=== PATIENT | female | born 1945 | race Caucasian/White ===

== ENCOUNTER → 2023-10-29 15:03 | Outpatient (REF) | payer OTHER, SELFPAY | LOC: DHCBS HW 15:03 | PROVIDERS: ATTENDING PHYSICIAN Internal Medicine Cardiovascular Disease; FAMILY PHYSICIAN Family Medicine | DX: Q24.9 Congenital malformation of heart, unspecified (principal); I50.812 Chronic right heart failure | CPT/HCPCS: 93306 ==

== ENCOUNTER → 2025-03-01 13:49 | Outpatient (REF) | payer OTHER, SELFPAY | LOC: HWRCS 13:49 | PROVIDERS: ATTENDING PHYSICIAN Internal Medicine Cardiovascular Disease; FAMILY PHYSICIAN Family Medicine | DX: I27.21 Secondary pulmonary arterial hypertension (principal); R42 Dizziness and giddiness | CPT/HCPCS: 93306 ==

== ENCOUNTER 2025-07-20 22:09 | Inpatient (IN) | payer OTHER, SELFPAY ==
[2025-07-20] VITALS (10 sets, daily range): BP systolic 103–133; BP diastolic 53–78; BMI 25.3
[2025-07-20 17:42] LABS: INR 1.37; PT 16.6 Sec (11.4-14.6)
[2025-07-20 17:43] LABS: APTT 25.5 Sec (23.4-35.0)
[2025-07-20 17:52] LABS: ALT (SGPT) 16 U/L (0-35); AST (SGOT) 28 U/L (14-36); Albumin 3.8 g/dl (3.5-5.0); Alkaline Phosphatase 77 U/L (38-126); Blood Urea Nitrogen 35 mg/dl (7-17); Calcium 8.4 mg/dl (8.4-10.2); Carbon Dioxide 24 mmol/L (22-30); Chloride 99 mmol/L (98-107); Glucose 106 mg/dl (70-99); Potassium 4.0 mmol/L (3.5-5.1); Sodium 133 mmol/L (135-145); Total Protein 6.1 g/dl (6.3-8.2); eGFR 57.31
[2025-07-20 19:29] LABS: Hematocrit 21.2 % (37.0-47.0); Hemoglobin 6.5 g/dL (12.0-16.0); Mean Corp Hgb Conc. 30.7 g/dL (33.0-37.0); Mean Corpuscular Volume 93.0 fL (81.0-99.0); Nucleated Red Blood Cells % 1.0 %; Platelet Count 222 10^3/uL (130-400); Red Cell Dist. Width 15.9 % (11.5-14.5)
--- NOTE | 2025-07-20 19:38 | ED.GENMED ---
History of Present Illness
<Paradise Reynoso MAPPING SUPERVISOR - Last Filed: 07/21/25 00:46>
General
Chief Complaint: Rectal Bleeding
Source: patient
Exam Limitations: none
Time Seen by Provider: 07/20/25 19:27
Nursing documentation reviewed up to this point in time: agreed with
History of Present Illness
History of Present Illness:
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
Presents for dark stools past 3 weeks, went to PCP today and tested heme positive stools. Has been fatigued, 'a little' nausea, chronically short of breath on exertion, states no worse, denies CP, abdominal pain. Eliquis was stopped 4 days ago by
PCP for dark/black stools.
Past History
<Paradise Reynoso, MAPPING SUPERVISOR - Last Filed: 07/21/25 00:46>
Past History
ED Past Medical History: Arrthythmia (Atrial fibrillation), Cancer (Head and neck), CHF and Other (sciatica-s/p epidural,Pulmonary hypertension, Diverticulitis, Vertigo, pericardial effusion, kidney injury, moderate to severe aortic regurgitation,
history of an atrial septal defect, Eisenmenger syndrome)
ED Past Surgical History: Other (Tongue and lumphnodes removed from neck. )
Social History
Tobacco: Non-smoker
Alcohol: None
Personal:
Living: alone
Family History
Family History: Unable to obtain
Review of Systems
<Paradise Reynoso, MAPPING SUPERVISOR - Last Filed: 07/21/25 00:46>
Review of Systems
Allergies reviewed?: Yes
All Other Systems: ROS reviewed and negative except as documented in HPI and ROS
Constitutional: Reports fatigue; Denies fever
Respiratory: Denies trouble breathing
Cardiac: Denies chest pain
ABD/GI: Reports nausea and black stools; Denies abdominal pain, vomiting or diarrhea
: Denies dysuria
Musculoskeletal: Reports edema (chronic, waxes and wanes, legs more swollen than usual)
Skin: Reports no symptoms
Neurological: Reports no symptoms
Phy Exam
<Paradise Reynoso, MAPPING SUPERVISOR - Last Filed: 07/21/25 00:46>
Physical Exam
Physical Exam:
GENERAL: No acute distress. A&Ox3. Very pleasant, talkative
CONSTITUTIONAL: Afebrile.
EYES: clear, conjunctivae normal
ENMT: moist mucus membranes, Pharynx nl
RESPIRATORY: Regular respirations, nonlabored, lungs clear.
CARDIOVASCULAR: Regular rate and rhythm, no murmurs, no rubs.
GI: Soft, nontender, normal BS
MUSCULOSKELETAL: Moves with ease. Well perfused. Bilateral LE +1-2 pitting edema R>L
SKIN: Warm, dry, pale.
PSYCH: Normal mood and affect. Well kept, interactive and appropriate
NEUROLOGIC: Awake, alert and oriented. No focal neurological deficits
Course
<Paradise Reynoso, MAPPING SUPERVISOR - Last Filed: 07/21/25 00:46>
Orders/Labs/Results
Orders:
Orders
07/20/25 Dinner
Clear Liquid
At Your Request: Full Participation
07/20/25 17:06
EKG [Electrocardiogram (*1)] Urgent
Reason for Study: Fatigue / Weakness
07/20/25 17:07
EKG- Treatment ONCE
07/20/25 17:25
Comprehensive Metabolic Panel Urgent
PTT Urgent
Prothrombin Time Urgent
07/20/25 19:13
Complete Blood Count/With Diff Urgent
07/20/25 19:56
IV Insert/Care/Rem.- Treatment PRN
Pantoprazole 80 mg/100 ml Nss [Protonix] 80 mg in 100 ml IV NOW
Pantoprazole [Protonix IV] 80 mg IV NOW STA
07/20/25 19:57
* Blood Bank Products Routine
Blood Bank Products: *Packed RBC Leuko (PRBC's
Quantity: 2
Transfuse Today: Yes
Reason: Bleeding
IV Insert/Care/Rem.- Treatment PRN
NT-proBNP Urgent
07/20/25 20:17
Type+Screen Urgent
BBK Wristband Number:
07/20/25 20:35
Electrocardiogram (*1) Urgent
Reason for Study: Chest Pain
EKG- Treatment ONCE
Lorazepam [Ativan] 0.5 mg IV NOW STA
07/20/25 21:12
Admit/Transfer Patient As Directed
Co-Sign Provider:
Level of Care: Inpatient admission
Assign to:: Telemetry
Physician / Group: staci Michael
Diagnosis: gi bleed on eliquis
Reason for Telemetry: Arrhythmia
Date to Stop Telemetry: 07/23/25
Time to Stop Telemetry: 11:00
Reason for Hospitalization: gi bleed on eliquis
Expected length of stay greater than two midnights?: Yes
ELOS- Estimated Length of Stay in days: 3
I certify the patient meets the requirements for IP care: Yes
Code Status As Directed
Resuscitation Status: Full Code
07/20/25 21:22
PRN Pain Medication Management As Directed
May give lesser potent ordered pain med per pt: Yes
preference::
Protocol:: Medication orders for pain may be administered in a
manner that supports deferring to patient preference
when the pt is:
- Requesting an ordered lesser potent pain medication.
Least to most potent pain medications are defined
as: acetaminophen < NSAID < tramadol < opioids
(morphine, oxycodone, hydromorphone).
- Requesting a lesser dose of the same medication IF
ORDERED.
- Requesting a less intrusive route of administration
if both routes are prescribed by the provider (PO <
IV).
07/20/25 22:02
Consult Notification Routine
Specialty to Notify: Gastroenterology
Date consulting provider notified: 07/21/25
Time consulting provider notified: 07:17
Notified:: Service
GASTROINTESTINAL CONSULT Routine
Consulting Provider: Daniel Dalal
Was physician already notified: No
Reason for consult: gi bleed on eliquis
07/20/25 22:14
Furosemide [Lasix] 20 mg IV ONCE ONE
Lorazepam [Ativan] 0.5 mg PO DAILYPRN PRN anxiety
riociguat [Adempas] See Dose Instructions PO TID
07/20/25 22:14
Activity As Directed
Activity Level: As Tolerated
Intake/ Output As Directed
Frequency: Per unit guidelines
Pneumatic Compression Sleeves As Directed
Type: Knee high
Teds [Anti-embolism (DEBI) Hose] As Directed
Type: Knee high
Vital Signs As Directed
Frequency: Per unit guidelines
Weight As Directed
Frequency: Daily
Pt Eval And Treat Routine
Activity Level: As Tolerated
DX Deep Vein Thrombosis Video Routine
07/20/25 22:30
Metoprolol Xl [Toprol Xl] 12.5 mg PO HS
07/20/25 23:30
macitentan [Opsumit] See Dose Instructions PO HS
07/21/25 05:55
Basic Metabolic Panel IN AM
Complete Blood Count/With Diff IN AM
07/21/25 08:00
Pantoprazole [Protonix IV] 40 mg IV BID
07/22/25 07:57
Basic Metabolic Panel IN AM
Complete Blood Count/With Diff IN AM
07/22/25 08:00
Digoxin [Lanoxin] 125 mcg PO MOWEFR
07/23/25 11:00
DC Protocol for Telemetry ONCE
Abnormal Lab Results
07/20/25 07/20/25 07/20/25
: 19:13 20:17
RBC 2.28 L 10^6/uL
(4.20-5.40)
Hgb 6.5 L* g/dL
(12.0-16.0)
Hct 21.2 L %
(37.0-47.0)
MCHC 30.7 L g/dL
(33.0-37.0)
RDW 15.9 H %
(11.5-14.5)
Absolute Lymphs (auto) 0.6 L 10^3/uL
(1.2-3.4)
Neutrophils % 78.5 H %
(42.2-75.2)
Lymphocytes % 10.5 L %
(20.5-51.1)
Monocytes % 10.4 H %
(1.7-9.3)
PT 16.6 H Sec
(11.4-14.6)
Sodium 133 L mmol/L
(135-145)
BUN 35 H mg/dl
(7-17)
Glucose 106 H mg/dl
(70-99)
Total Protein 6.1 L g/dl
(6.3-8.2)
Crossmatch IS Only See Detail
07/20/25 19:13
07/20/25 17:25
Vital Signs
Initial and Last Documented VS:
Initial Vital Signs
Temp Pulse Resp BP Pulse Ox
98.2 F 89 16 103/78 100
07/20/25 17:03 07/20/25 17:03 07/20/25 17:03 07/20/25 17:03 07/20/25 17:03
Last Documented Vital Signs
Temp Pulse Resp BP Pulse Ox
97.4 F 108 16 102/50 95
07/22/25 11:20 07/22/25 11:20 07/22/25 11:20 07/22/25 11:20 07/22/25 11:20
Straddle Truck Operator consulted with Physician
Straddle Truck Operator consulted with physician?: Yes
Name of Physician Consulted: Ernesto
<Jagruti Orozco, DO - Last Filed: 07/23/25 13:56>
Orders/Labs/Results
Orders:
Orders
07/20/25 Dinner
Clear Liquid
At Your Request: Full Participation
07/20/25 17:06
EKG [Electrocardiogram (*1)] Urgent
Reason for Study: Fatigue / Weakness
07/20/25 17:07
EKG- Treatment ONCE
07/20/25 17:25
Comprehensive Metabolic Panel Urgent
PTT Urgent
Prothrombin Time Urgent
07/20/25 19:13
Complete Blood Count/With Diff Urgent
07/20/25 19:56
IV Insert/Care/Rem.- Treatment PRN
Pantoprazole 80 mg/100 ml Nss [Protonix] 80 mg in 100 ml IV NOW
Pantoprazole [Protonix IV] 80 mg IV NOW STA
07/20/25 19:57
* Blood Bank Products Routine
Blood Bank Products: *Packed RBC Leuko (PRBC's
Quantity: 2
Transfuse Today: Yes
Reason: Bleeding
IV Insert/Care/Rem.- Treatment PRN
NT-proBNP Urgent
07/20/25 20:17
Type+Screen Urgent
BBK Wristband Number:
07/20/25 20:35
Electrocardiogram (*1) Urgent
Reason for Study: Chest Pain
EKG- Treatment ONCE
Lorazepam [Ativan] 0.5 mg IV NOW STA
07/20/25 21:12
Admit/Transfer Patient As Directed
Co-Sign Provider:
Level of Care: Inpatient admission
Assign to:: Telemetry
Physician / Group: staci Michael
Diagnosis: gi bleed on eliquis
Reason for Telemetry: Arrhythmia
Date to Stop Telemetry: 07/23/25
Time to Stop Telemetry: 11:00
Reason for Hospitalization: gi bleed on eliquis
Expected length of stay greater than two midnights?: Yes
ELOS- Estimated Length of Stay in days: 3
I certify the patient meets the requirements for IP care: Yes
Code Status As Directed
Resuscitation Status: Full Code
07/20/25 21:22
PRN Pain Medication Management As Directed
May give lesser potent ordered pain med per pt: Yes
preference::
Protocol:: Medication orders for pain may be administered in a
manner that supports deferring to patient preference
when the pt is:
- Requesting an ordered lesser potent pain medication.
Least to most potent pain medications are defined
as: acetaminophen < NSAID < tramadol < opioids
(morphine, oxycodone, hydromorphone).
- Requesting a lesser dose of the same medication IF
ORDERED.
- Requesting a less intrusive route of administration
if both routes are prescribed by the provider (PO <
IV).
07/20/25 22:02
Consult Notification Routine
Specialty to Notify: Gastroenterology
Date consulting provider notified: 07/21/25
Time consulting provider notified: 07:17
Notified:: Service
GASTROINTESTINAL CONSULT Routine
Consulting Provider: Daniel Dalal
Was physician already notified: No
Reason for consult: gi bleed on eliquis
07/20/25 22:14
Furosemide [Lasix] 20 mg IV ONCE ONE
Lorazepam [Ativan] 0.5 mg PO DAILYPRN PRN anxiety
riociguat [Adempas] See Dose Instructions PO TID
07/20/25 22:14
Activity As Directed
Activity Level: As Tolerated
Intake/ Output As Directed
Frequency: Per unit guidelines
Pneumatic Compression Sleeves As Directed
Type: Knee high
Teds [Anti-embolism (DEBI) Hose] As Directed
Type: Knee high
Vital Signs As Directed
Frequency: Per unit guidelines
Weight As Directed
Frequency: Daily
Pt Eval And Treat Routine
Activity Level: As Tolerated
DX Deep Vein Thrombosis Video Routine
07/20/25 22:30
Metoprolol Xl [Toprol Xl] 12.5 mg PO HS
07/20/25 23:30
macitentan [Opsumit] See Dose Instructions PO HS
07/21/25 05:55
Basic Metabolic Panel IN AM
Complete Blood Count/With Diff IN AM
07/21/25 08:00
Pantoprazole [Protonix IV] 40 mg IV BID
07/22/25 07:57
Basic Metabolic Panel IN AM
Complete Blood Count/With Diff IN AM
07/22/25 08:00
Digoxin [Lanoxin] 125 mcg PO MOWEFR
07/23/25 11:00
DC Protocol for Telemetry ONCE
Abnormal Lab Results
07/20/25 07/20/25 07/20/25
19:13 20:17
RBC 2.28 L 10^6/uL
(4.20-5.40)
Hgb 6.5 L* g/dL
(12.0-16.0)
Hct 21.2 L %
(37.0-47.0)
MCHC 30.7 L g/dL
(33.0-37.0)
RDW 15.9 H %
(11.5-14.5)
Absolute Lymphs (auto) 0.6 L 10^3/uL
(1.2-3.4)
Neutrophils % 78.5 H %
(42.2-75.2)
Lymphocytes % 10.5 L %
(20.5-51.1)
Monocytes % 10.4 H %
(1.7-9.3)
PT 16.6 H Sec
(11.4-14.6)
Sodium 133 L mmol/L
(135-145)
BUN 35 H mg/dl
(7-17)
Glucose 106 H mg/dl
(70-99)
Total Protein 6.1 L g/dl
(6.3-8.2)
Crossmatch IS Only See Detail
07/20/25 19:13
07/20/25 17:25
Vital Signs
Initial and Last Documented VS:
Initial Vital Signs
Temp Pulse Resp BP Pulse Ox
98.2 F 89 16 103/78 100
07/20/25 17:03 07/20/25 17:03 07/20/25 17:03 07/20/25 17:03 07/20/25 17:03
Last Documented Vital Signs
Temp Pulse Resp BP Pulse Ox
97.4 F 108 16 102/50 95
07/22/25 11:20 07/22/25 11:20 07/22/25 11:20 07/22/25 11:20 07/22/25 11:20
Justinelt;Paradise Reynoso, MAPPING SUPERVISOR - Last Filed: 07/21/25 00:46>
MDM/Problems Addressed
Differential Diagnosis Includes:
UGI bleed, PUD, gastritis
MDM/Problems Addressed:
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
Presents for dark stools past 3 weeks, went to PCP today and tested heme positive stools. Has been fatigued, 'a little' nausea, chronically short of breath on exertion, states no worse, denies CP, abdominal pain. Eliquis was stopped 4 days ago by
PCP for dark/black stools.
Afebrile, NAD EKG: A-fib with controlled rate, RBBB, no change
Vital signs stable
7:30 PM:
CBC: Hemoglobin 6.5
CMP: BUN 35 otherwise no clinically significant abnormality
Blood consent form signed and scanned into her admission
Case discussed with Dr. Orozco
8:00 p.m.
Pt is stable Hospitalist notified of admission.
Chronic conditions affecting care: HTN and Arrhythmia
<Paradise Reynoso MAPPING SUPERVISOR - Last Filed: 07/21/25 00:46>
*Pulse Oximetry
SaO2: 94
Oxygen Mode of Delivery: Room air
Patient hypoxic: no
*EKG
EKG Intrepretation Date: 07/20/25
Interpretation: abnormal
Comparison EKG: no changes
Heart Rate: 90
Rate: normal
Rhythm: a-fib
[place]: normal axis
QRS Pattern: right bundle branch block
Ischemia: no ischemia
*Critical Care Note
Total Time (30-74mins, 75-104mins- exclusive of procedures): Not Applicable
ED Attending Note
<Paardise Reynoso MAPPING SUPERVISOR - Last Filed: 07/21/25 00:46>
-
Portions of this chart may have been created with voice recognition software.� Occasional wrong word or��sound alike� substitutions may have occurred due to the inherent limitations of voice recognition software.
<Jagruti Orozco, DO - Last Filed: 07/23/25 13:56>
ED Attending Note
Patient seen and examined by attending physician: Yes
I performed the substantive portion of visit, reviewed & personally made and approve the management plan that is documented in note by myself or RANDAL.: Yes
I performed a history and physical exam of patient and discussed management with resident, I reviewed resident's note and agree with documented findings and plan of care.: Yes
ED Attending Note:
80-year-old female referred to the ER from primary care office for concern of dark tarry stools over the last month along with weakness and shortness of breath. Patient feels comfortable while resting in the stretcher. Vital signs reviewed,
patient is awake, alert, appears in no acute distress, pale, elderly, mucous membranes moist, heart regular rate and rhythm without murmurs or ectopy, abdomen is soft and nontender, GCS is 15. I discussed with patient and daughter present at
bedside need for admission for blood transfusion given her hemoglobin is less than half of what it was compared to prior testing, today is 6. They agree with plan for admission. Nurse practitioner was able to speak with the hospitalist who accepts
patient for admission for further care. Blood consent form is signed
Discharge Plan
Departure
Patient Disposition: Admit
Date of Disposition: 07/20/25
Time of Disposition: 20:11
Admit to: Med/Surg
Presentation/result/management discussed w/ accepting MD/DO: Hospitalist
Condition: Fair
Discharge Problem:
GI (gastrointestinal bleed)
Interventions
Interventions:
*General Assessment Last Done: 07/20/25 19:07
*Neglect/Abuse Screening Last Done: 07/20/25 17:03
*ED COVID-19 Vaccine History Last Done: 07/20/25 19:07
*ED Influenza Vaccine History Last Done: 07/20/25 19:07
[facility] Risk Assessment Tool Last Done: 07/21/25 07:00
*Risk Screen - Suicide (C-SSRS) Last Done: 07/20/25 17:03
*Nursing Disposition Last Done: 07/20/25 22:19
EE-Deqqwp-Uduxllqptf Assessment Last Done: 07/20/25 19:07
ED- Cardiac Assessment Last Done: 07/20/25 19:07
ED- Pulmonary Assessment Last Done: 07/20/25 19:07
[2025-07-20] MEDS: PROTONIX 100 IV (20:21)
[2025-07-20] MEDS: PROTONIX IV 80 MG IV (20:21)
--- NOTE | 2025-07-20 20:43 | HPS.HSE ---
Family Physician
-
Family Physician: * NONE
Chief Complaint
-
dark black stool x 3 weeks on eliquis
History of Present Illness
80 year old female from home with 3 weeks hx of dark stools. The pt went to her Pcp today where she tested heme positive and was sent to the Er for eval given she is on Eliquis for Afib. SHe has held her Eliquis for the past 5 days .She was noted
to have a hgb of 6.5 in the ER today. She reports Fatigue and Davis along with acute on chronic leg edema since she wasnt exercising her legs she states to control it. She does not wear teds stockings . The pt denies fever, chills, cp , palpitaitons,
sob, cough, abd pain , nausea, vomiting , diarrhea or urinary symptoms .
She has PMH of Parapelgia, garbled speech baseline from glossectomy due to tongue cancer in 2012, Afib on eliquis , Atrial septal defect ,CHF with bilat leg edema , RBBB, Pulm HTN, aortic regurg, diverticulitis and anxiety.
Medical History
Past Medical History
Past Medical History: Reports Other (ASD, aortic regurgitation, pulmonary hypertension, head and neck cancer, chronic sciatica, diverticulitis, chronic vertigo,)
Additional Past Medical History:
Parapelgia
garbled speech baseline from glossectomy due to tongue cancer in 2012
Afib on eliquis
Atrial septal defect
CHF with bilat leg edema
RBBB
Pulm HTN
aortic regurg
diverticulitis
anxiety
Past Surgical History: Reports None
Social History
Tobacco: Non-smoker
Alcohol: None
Drug: None
Personal: Single
Living: With Family (daughters )
Employment: Retired
Family History
Family History: Not pertinent
Allergies / Home Medications
Allergies reflects when Allergies were last updated in [facility].
Home Medications with original date entered in [facility]
Allergy/Medication List:
Allergies
Allergy/AdvReac Type Severity Reaction Status Date / Time
amoxicillin Allergy Unknown Verified 07/20/25 17:06
codeine (Codeine) Allergy 'makes me Verified 07/20/25 17:06
sick'-NAUSEA
metoclopramide Allergy Unknown Verified 07/20/25 17:06
morphine Allergy PASS OUT Verified 07/20/25 17:06
Home Medications
macitentan 10 mg tablet (Opsumit) 10 mg PO HS Lung/breathing issues 03/16/17
lorazepam 0.5 mg tablet 0.5 mg PO DAILYPRN PRN anxiety 08/28/22
apixaban 5 mg tablet (Eliquis) 5 mg PO BID Blood Clot Prevention/Tx 12/25/22
digoxin 125 mcg (0.125 mg) tablet 125 mcg PO MOWEFR Arrhythmia 12/25/22
furosemide 20 mg tablet 40 mg PO DAILY@1200 Fluid Retention/Swelling 12/25/22
metoprolol succinate 25 mg tablet,extended release 24 hr 12.5 mg PO HS Blood Pressure 12/25/22
riociguat 0.5 mg tablet (Adempas) 0.5 mg PO TID PAH 12/25/22
bisacodyl 10 mg rectal suppository (Dulcolax (bisacodyl)) 10 mg HI DAILYPRN PRN constipation 07/20/25
Review of Systems
-
History Source: Patient
A 12 point ROS was completed and negative except as noted: Yes
Constitutional: Reports Fatigue; Denies Fever or Chills
EENT: Denies Sore Throat or Runny Nose
Respiratory: Reports Trouble Breathing (davis ); Denies Cough
Cardiac: Denies Chest Pain, Diaphoresis, Palpitations or Syncope
Abdomen/GI: Reports Black Stools; Denies Abdominal Pain, Nausea, Vomiting, Diarrhea, Constipated or Bloody Stools
: Denies Dysuria, Frequency, Flank Pain, Incontinence, Difficulty Voiding or Urgency
Musculoskeletal: Reports Edema (+3 bilat legs ); Denies Joint Pain
Skin: Denies Itching or Rash
Neurological: Denies Dizzy, Headache or Weakness
Endocrine: Reports No Symptoms
Hematologic/Lymphatic: Reports No Symptoms
Psych: Reports Calm
Physical Exam
Vital Signs
Vital Signs
Temp Pulse Resp BP Pulse Ox
98.2 F 83 18 114/72 94
07/20/25 17:03 07/20/25 20:00 07/20/25 20:00 07/20/25 20:00 07/20/25 19:56
Physical Exam
General: No Fever or Chills
HEENT: NormoCephalic, Anicteric, Moist mucous membranes, PERRLA, No Ptosis and Other (slight raspy voice s/p partial glossectomy due to tongue cancer 2012)
Respiratory: Clear; No Wheezes, Rales or Rhonchi
Cardiac: S1/S2, Regular Rhythm and Peripheral Edema (bilat legs +3); No Murmur, Rub or Gallop
Breast: Deferred by me
GI: Soft, Non Tender, Non Distended and No Hepatosplenomegaly
Rectal: Other (reported heme positive in PCP office today )
Genito-urinary: Deferred by me
Musculoskeletal: No Clubbing, No Cyanosis and No Edema
Skin: Warm and Dry; No Rash
Neuro: AO x 3, No Motor Deficits, Nonfocal/grossly intact, Cranial Nerves Intact and No Sensory Deficits; No Slurred Speech, Facial Droop or Tremors
Psych: Calm
Laboratory Results
-
07/20/25 19:13
07/20/25 17:25
Laboratory Results
PT 16.6 Sec (11.4-14.6) H 07/20/25 17:25
INR 1.37 07/20/25 17:25
APTT 25.5 Sec (23.4-35.0) 07/20/25 17:25
Total Bilirubin 1.1 mg/dl (0.2-1.3) 07/20/25 17:25
AST 28 U/L (14-36) 07/20/25 17:25
ALT 16 U/L (0-35) 07/20/25 17:25
Alkaline Phosphatase 77 U/L (38-126) 07/20/25 17:25
Data Reviewed
-
Lab Data: Labs Reviewed by me
Impression/Plan
-
Impression/Plan:
Admit to Tele
#Gi Bleed on eliquis
#Diverticulitis hx
Heme + stool in Er
hgb 6.5
- Hold Eliquis
- type and screen
- transfuse 1 unit prbc
-Iv lasix 1/2 way thru blood transfusion
- obtain blood consent
- check iron panel, b12 folate
- consult GI last colo 8 years ago
- follow cbc, cmp
-Pt consult
#Afib on eliquis
- Hold Eliquis due to gi bleed/anemia
- cont Digoxin, metoprolol
#Chronic Chf diastolic
Chronic bilat leg edema
I/O, daily
teds stockings to be applied
#Mild Garbled speech baseline from glossectomy due to tongue cancer in 2012
#Atrial septal defect
#RBBB
#Pulm HTN
cont Opsumit and Adempas tid
#Aortic regurg
#Anxiety
-cont lorazepam
Dvt proph
scd's
Full code
--- NOTE | 2025-07-20 21:01 | W.PN.UPDATE ---
Update Note
Progress Note Update
This note serves as an addendum to the H&P by splitter operator RANDAL�
Mery Karthik
HPI
80F Non smoker , paraplegic, Garble speech at baseline
Significant PMHX ; partial glossectomy due to tongue cancer 2012, A-fib on Eliquis, ASD, CHF, RBBB, pulmonary HTN, aortic regurgitation, diverticulitis, anxiety
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
- pw dark stools past 3 weeks
- Eliquis was stopped 4 days ago by PCP for dark/black stools.
- FU with PCP today and tested HoB POS stools.
- Has been fatigued, 'a little' nausea
- chronically short of breath on exertion, states no worse
ROS
denies CP, abdominal pain.
At ER:
Hgb 6.5
BUN 35 otherwise no clinically significant abnormality
Relevant VS
Temp Pulse Resp BP Pulse Ox
98.2 F 83 18 114/72 94
07/20/25 17:03 07/20/25 20:00 07/20/25 20:00 07/20/25 20:00 07/20/25 19:56
PE
Gen:No distress
HEENT:anicteric
Neck:
Lungs:
Cor:Reg, S1/S2, 2/6 SM at LSB, + RV heave, increase P2
Abdomen:�soft, BS+, NT/ND
ANA LILIA: per PCP POS HoB stool
FROZEN PIE MAKER:Gross non-focal
MS:no edema
Relevant data�
12/25/22 07/20/25
05:54 19:13
WBC 10.2 5.9
Hgb 13.2 6.5 L*
MCV 93.0
Plt Count 222
07/20/25
17:25
Sodium 133 L
Potassium 4.0
Carbon Dioxide 24
BUN 35 H
Creatinine 1.0
eGFR 57.31
12/25/22 07/20/25
06:43 19:57
Ywf-V-Kmjnprkktim Pept [id number]
12/25/22 TTE: :
- EF 65 to 70%, mild cLVH
- stage II diastolic dysfunction
- moderately enlarged RV size
- septal flattening in systole and diastole consistent with RV pressure and volume overload
- ilateral severely dilated atria
- mild MR
- moderate AR
- severe TR
- PAP 65 to 75 mmHg
- mild to moderate IA
- trivial pericardial effusion
Last hospitalist admission: 08/29/2022 - 09/05/2022
DISCHARGE DIAGNOSES:
Pericardial effusion, bloody.
Acute on chronic RHF with preserved ejection fraction.
New onset AF with rapid ventricular rate.
HX head and neck cancer.
5. Hypercapnic RF
Chronic sciatica.
Anxiety.
ASSESSMENT & PLAN
Severe symptomatic anemia ( Hgb 6.5) suspect GIB
HoB POS dark stool GIB
Borderline relative hypotension
- Blood consented
- Hold Eliquis for now - last dose was 4-5 days ago
- IV PPI 40 gm BID
- agree Tx 1 PRBCs
- IV Lasix 20mg long-term thru the 1 PRBC Tx
- FU H & H q6H
- Sips of clear
- GI consult
Suspected hi risk anaesthesia patient
Significant complex PMHX
partial glossectomy due to tongue cancer 2012
A-fib on Eliquis: Hold Eliquis due to current GIB
ASD, CHF, RBBB, pulmonary HTN, aortic regurgitation
diverticulitis
anxiety
Complex cardiac HX CHD
sinus venosus ASD
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
Eisenmenger physiology, with resultant pulm HTN on Opsumit and recently started earlier this month on Adempas
DVT Px: SCD
Full code
IP TLM
[2025-07-20] MEDS: ATIVAN 0.5 MG IV (21:03)
[2025-07-20] MEDS: NON-FORMULARY ITEM 1 MG PO (23:36)
[2025-07-20] MEDS: NON-FORMULARY ITEM 0.5 MG PO (23:36)
[2025-07-21] VITALS (31 sets, daily range): BP systolic 102–130; BP diastolic 31–90; PULSE 79; O2SAT 94
[2025-07-21] MEDS: TYLENOL 1000 MG PO
[2025-07-21] MEDS: LASIX 20 MG IV (01:10)
[2025-07-21 06:29] LABS: Hematocrit 26.7 % (37.0-47.0); Hemoglobin 8.5 g/dL (12.0-16.0); Mean Corp Hgb Conc. 31.8 g/dL (33.0-37.0); Mean Corpuscular Volume 91.8 fL (81.0-99.0); Nucleated Red Blood Cells % 1.8 %; Platelet Count 178 10^3/uL (130-400); Red Cell Dist. Width 16.0 % (11.5-14.5)
[2025-07-21 07:00] LABS: Blood Urea Nitrogen 32 mg/dl (7-17); Calcium 8.2 mg/dl (8.4-10.2); Carbon Dioxide 26 mmol/L (22-30); Chloride 105 mmol/L (98-107); Estimated Creatinine Clearance 35 ml/min; Glucose 99 mg/dl (70-99); Potassium 3.8 mmol/L (3.5-5.1); Sodium 136 mmol/L (135-145); eGFR 57.31
[2025-07-21] MEDS: NSS (PRESERVATIVE FREE) 10 ML IV ×2 (07:22→21:26)
[2025-07-21] MEDS: PROTONIX IV 40 MG IV ×2 (07:22→21:25)
[2025-07-21] MEDS: NON-FORMULARY ITEM 0.5 MG PO ×2 (07:24→22:55)
--- NOTE | 2025-07-21 08:54 | CON.GI ---
Addendum entered and electronically signed by Daniel Dalal MD 07/21/25 11:19:
I saw and evaluated the patient. I reviewed the resident�s note and agree with findings and plan as documented in the resident�s note.
80yo female hx ASD, Eisenmenger physiology Afib on eliquis presents with melena x 2 weeks. She called and was told to hold eliquis since Sat and with ongoing sx sent to ER. Hgb 6.5, transfused 2 units PRBC with increase HGb to 8.5. Denies GI c/o
except some nausea. Denies NSAIDs. Had colonoscopy in 2013-diverticulosis. No prior EGD.
REC:
She is high risk for anesthesia but given her acute anemia, need to investigate source
Plan EGD with light sedation r/o PUD, ectasia, CA
Protonix BID ok
Hold Eliquis- last dose 07/16
Original Note:
Consultation
-
Date/Time Consultation Requested: 07/20/25, 22:02pm
Date/Time Consultation Performed: 07/21/25, 8:58am
Requesting Provider: Mery Angeles CRNP
Performing Provider: Grace Quiroga MD for Daniel Yadav MD
Reason for Consultation: melanotic stools
Medical History
Chief Complaint / HPI
Chief Complaint: Melanotic stools x 2 weeks
History of Present Illness:
80-year-old female with past medical history significant for glossectomy from tongue cancer in 2012, large atrial septal defect (not repaired), resulting in Eisenmenger physiology, paroxysmal A-fib on Eliquis, pulmonary artery hypertension, CHF with
bilateral baseline pedal edema, right bundle branch block, aortic regurgitation, diverticulitis and anxiety presents to the ER for evaluation of ongoing melanotic stools. Patient reports having tarry black stools for about 2 weeks. She visited her
primary care physician today and tested heme positive in the office and was sent to the ER for evaluation by her PCP. She stopped taking her Eliquis about 5 days ago on Friday after calling her PCP office. She admits to have intermittent nausea
with no emesis, but constant fatigue. She denies having abdominal pain, constipation, diarrhea, fevers, chills, shortness of breath on exertion, palpitations, dysuria, or hematuria.
She has never had similar episodes in the past.
upon arrival to the ER, her hemoglobin was found to be 6.5, her outpatient hemoglobin last available was 12.6, she is status post 2 units of blood transfusion overnight, her present hemoglobin level is at 8.5.
Past Medical History
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
regurgitation, diverticulitis and anxiety)
Past Surgical History: Other (Glossectomy)
Social History
Tobacco: Other (Former cigarette smoker, currently vaping, 82-tqcg-lrby smoking history)
Alcohol: Occasional
Drug: None
Personal: Single
Living: With Family
Employment: Retired
Family History
Family History: Reviewed & Not Pertinent
Allergies / Home Medications
Allergy/AdvReac Type Severity Reaction Status Date / Time
amoxicillin Allergy Unknown Verified 07/20/25 17:06
codeine (Codeine) Allergy 'makes me Verified 07/20/25 17:06
sick'-NAUSEA
metoclopramide Allergy Unknown Verified 07/20/25 17:06
morphine Allergy PASS OUT Verified 07/20/25 17:06
�Medication �Instructions �Recorded
macitentan 10 mg tablet (Opsumit) 10 mg PO HS Lung/breathing issues 03/16/17
lorazepam 0.5 mg tablet 0.5 mg PO DAILYPRN PRN anxiety 08/28/22
apixaban 5 mg tablet (Eliquis) 5 mg PO BID Blood Clot 12/25/22
Prevention/Tx
digoxin 125 mcg (0.125 mg) tablet 125 mcg PO MOWEFR Arrhythmia 12/25/22
furosemide 20 mg tablet 40 mg PO DAILY@1200 Fluid 12/25/22
Retention/Swelling
metoprolol succinate 25 mg 12.5 mg PO HS Blood Pressure 12/25/22
tablet,extended release 24 hr
riociguat 0.5 mg tablet (Adempas) 0.5 mg PO TID PAH 12/25/22
bisacodyl 10 mg rectal suppository 10 mg [place] DAILYPRN PRN constipation 07/20/25
(Dulcolax (bisacodyl))
Review of Systems
-
History Source: Patient
Constitutional: Reports Weight Gain and Fatigue; Denies Fever, Weight Loss, Night Sweats or Chills
EENT: Reports No Symptoms
Respiratory: Reports No Symptoms
Cardiac: Reports No Symptoms
Abdomen/GI: Reports Nausea and Black Stools
: Reports No Symptoms
Musculoskeletal: Reports No Symptoms
Skin: Reports No Symptoms
Neurological: Reports Weakness
Endocrine: Reports No Symptoms
Hematologic/Lymphatic: Reports No Symptoms
Vital Signs
Temp Pulse Resp BP Pulse Ox
97.8 F 86 14 120/65 94
07/21/25 07:30 07/21/25 08:00 07/21/25 08:00 07/21/25 08:00 07/21/25 08:04
Physical Exam
Exam
General: No Apparent Distress and Comfortable (On 3 L nasal cannula flow.)
HEENT: Normocephalic and Anicteric
Respiratory: Clear; Negative Wheezes, Rales or Rhonchi
Cardiac: S1/S2, Irregular Rhythm and Murmur (Grade 2/6 systolic murmur best heard at the apex, no gallop.)
GI: Soft, Non Tender, Non Distended, Normal Bowel Sounds and Other (No anal fissure noted,)
Rectal: Hem Positive
Skin: Warm
Neuro: AO x 3
Psych: Calm
Results
WBC 5.6 10^3/uL (4.8-10.8) 07/21/25 05:55
Hgb 8.5 g/dL (12.0-16.0) L D 07/21/25 05:55
Hct 26.7 % (37.0-47.0) L 07/21/25 05:55
MCV 91.8 fL (81.0-99.0) 07/21/25 05:55
Plt Count 178 10^3/uL (130-400) 07/21/25 05:55
Absolute Neuts (auto) 4.4 10^3/uL (1.4-6.5) 07/21/25 05:55
PT 16.6 Sec (11.4-14.6) H 07/20/25 17:25
INR 1.37 07/20/25 17:25
APTT 25.5 Sec (23.4-35.0) 07/20/25 17:25
Sodium 136 mmol/L (135-145) 07/21/25 05:55
Potassium 3.8 mmol/L (3.5-5.1) 07/21/25 05:55
Chloride 105 mmol/L (98-107) 07/21/25 05:55
Carbon Dioxide 26 mmol/L (22-30) 07/21/25 05:55
BUN 32 mg/dl (7-17) H 07/21/25 05:55
Creatinine 1.0 mg/dL (0.6-1.0) 07/21/25 05:55
Calcium 8.2 mg/dl (8.4-10.2) L 07/21/25 05:55
Total Bilirubin 1.1 mg/dl (0.2-1.3) 07/20/25 17:25
AST 28 U/L (14-36) 07/20/25 17:25
ALT 16 U/L (0-35) 07/20/25 17:25
Alkaline Phosphatase 77 U/L (38-126) 07/20/25 17:25
Diagnostic Image Results:
CT chest abdomen and pelvis-09/01/2022-
CHEST:
1. SEVERE CARDIOMEGALY with severe right ventricular and right atrial enlargement.
2. Large atrial septal defect.
3. SEVERELY ENLARGED PULMONARY ARTERIES consistent with SEVERE PULMONARY ARTERIAL HYPERTENSION.
4. Severe calcific atherosclerotic plaque in the coronary arteries.
5. Moderate-sized complex pleural effusion which does not contain enhancing septations or solid mural nodules to strongly suggest malignancy.
6. No CT evidence for maximiliano or pulmonary malignancy in the chest.
7. Small bilateral pleural effusions.
8. Moderate airspace consolidation in the basilar left lower lobe. Small airspace consolidations in the posterior basilar right lower lobe and left upper lobe which could be pneumonia or atelectasis.
ABDOMEN and PELVIS:
1. Moderate passive hepatic venous congestion in the liver.
2. Moderate chronic bilateral renal disease.
3. Moderate calcific atherosclerotic plaque in the abdominal aorta.
4. No CT evidence for malignancy in the abdomen or pelvis.
5. Severe discogenic degenerative disease and facet joint arthrosis in the lumbar spine.
Prior GI Procedures:
EGD: none
Colonoscopy:
03/08/2014-
Findings:
Multiple small and large-mouthed diverticula were found in the sigmoid
colon.
The exam was otherwise without abnormality.
Rectum was normal
The perianal and digital rectal examinations were normal.
Impression: - Diverticulosis in the sigmoid colon.
- The examination was otherwise normal.
Assessment / Plan
-
Assessment-
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
hypertension, CHF with bilateral baseline pedal edema, right bundle branch block, aortic regurgitation, diverticulitis and anxiety who is admitted to the hospital for evaluation of acute blood loss anemia and melanotic stools.
Problem list-
# Acute blood loss anemia
# Melanotic stools
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
# Right bundle branch block
# Pulmonary artery hypertension
# Paroxysmal A-fib on Eliquis, last dose of Eliquis on Friday-07/16/2025.
Plan-
Status post 2 units of blood transfusion, hemoglobin at 8.5, stable. Appreciate primary team management with blood loss anemia. Agreed to trend H&H, and transfuse as needed to keep hemoglobin greater than 8.
Hold oral intake for now, agree with PPI BID
Evaluation with upper GI endoscopy today.
Outpatient cardiology notes reviewed, patient is a high risk candidate for anesthesia with Eisenmenger physiology as she would quickly become hypotensive. Cardiology recommends light sedation.
-
-
Thank you for consultation and allowing me to participate in the patient's care. Please call the staff radiation therapist GI physician during the after hours with any questions or concerns.
--- NOTE | 2025-07-21 10:33 | W.PN.HOSP.TC ---
Today's Communication/Plan
-
Blood transfusion as needed. EGD. GI eval
Assessment / Plan
Assessment / Plan
Physical exam:
General: Acutely ill
HEENT: Normocephalic, Atraumatic and Moist Mucous Membranes
Respiratory: Clear to Auscultation; Negative Wheezes, Rales or Rhonchi
Cardiac: Irregular rate and rhythm, systolic murmur, and S1/S2
GI: Soft, Nontender and Nondistended
Musculoskeletal: No Clubbing, No Cyanosis and No Edema
Neuro: Awake, Alert and Oriented, no neurological deficit
Psych: Calm
A/P:
Acute blood loss anemia:
Status post blood transfusion
Hemoglobin 6.5 upon admission. Today hemoglobin 8.5
Continue to monitor hemoglobin
Acute GI bleed:
Continue IV PPI
GI consult
Likely plan for EGD today
Acute hypoxic respiratory insufficiency:
Obtain baseline chest x-ray
Oxygen as needed
Incentive spirometry
Diuresis as needed
Chronic HFpEF:
Appears euvolemic but some chronic peripheral edema
Monitor volume status and daily weights
Paroxysmal atrial fibrillation:
Continue digoxin 125 mcg p.o. Friday and Friday, and metoprolol succinate 12.5 mg nightly
Holding anticoagulant
Pulmonary hypertension:
On Opsumit as outpatient-continue while inpatient
History of head and neck cancer:
Status post partial glossectomy, lymph node dissection, chemoradiation back in 2012
Anxiety:
Continue benzodiazepines as needed
History of congenital heart disease:
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
Sinus venosus ASD
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
History of pericardial effusion in the past status post pericardiocentesis back in 2022.
DVT prophylaxis:
SCDs
CODE STATUS:
Full code
Total time spent on today's encounter was 52 minutes which included time spent in counseling the patient/family regarding diagnosis and treatment plan as listed above, goals of care, and symptom management. Case was discussed with nursing staff,
specialists, and care coordinators/case management. All labs and imaging personally reviewed by me. Remainder the time spent in detailed review of previous records, lab data, imaging, and other medical provider documentation.
Anticipated Discharge: 24 - 48 hours
Subjective/Interval History
-
Date of Service: July 21, 2025
Patient reports dark stool prior to admission. She denies chest pain or shortness of breath at the moment. Denies abdominal pain nausea or vomiting. She has been holding anticoagulation prior to admission.
Objective Data
-
Labs:
Laboratory Results
07/21/25
05:55
WBC 5.6
Hgb 8.5 L D
Hct 26.7 L
Plt Count 178
Sodium 136
Potassium 3.8
Chloride 105
Carbon Dioxide 26
BUN 32 H
Creatinine 1.0
Glucose 99
Calcium 8.2 L
Vital Signs:
Vital Signs
Temp Pulse Resp BP Pulse Ox
97.8 F 86 14 120/65 94
07/21/25 07:30 07/21/25 08:00 07/21/25 08:00 07/21/25 08:00 07/21/25 08:04
I&O
07/20/25 07/21/25 07/22/25
06:59 06:59 06:59
Intake Total 500 / 500
Balance 500 / 500
--- NOTE | 2025-07-21 11:02 | W.PN.UPDATE ---
Addendum entered and electronically signed by Daniel Dalal MD 07/21/25 11:07:
Pt reports having feeding tube years ago. Perhaps suture is from G tube and site ulcerated with bleeding on eliquis
Original Note:
Update Note
Progress Note Update
EGD done
2mm ulcer gastric body at site of what appeared to be a suture with clot adhered to the suture
Injected w 2cc dilute epi and clip applied
No active bleeding during procedure
REC:
Clears
Monitor Hgb
? prior procedure/surgery to explain suture in gastric body.
Protonix
[2025-07-21] MEDS: BenGay-Like 1 APPLIC TOPICAL (12:37)
--- NOTE | 2025-07-21 13:59 | CON.CAR ---
Addendum entered and electronically signed by Bo Hall MD 07/21/25 16:32:
I saw and examined the patient.
The Skip Locator's note was reviewed and I agree with the note.
Comment: 80-year-old woman with past medical history of congenital heart disease, ASD and anomalous pulmonary venous return, who developed pulmonary hypertension, Eisenmenger syndrome and right-sided heart failure as well as persistent atrial
fibrillation on Eliquis who presents with melena and anemia concerning for acute GI bleed. Patient underwent EGD earlier today a bleeding gastric ulcer. Tentatively plan for colonoscopy. Cardiology has been consulted to help with management of
her chronic heart failure.
Received blood transfusion given acute anemia and now appears volume overloaded on exam
proBNP is elevated >5000 and she is requiring supplemental oxygen
Would start IV Lasix 40 mg once daily
Follow daily weights, renal function/electrolytes and wean oxygen as able
Rest per Maria Del Carmen Helm
Original Note:
Consultation
Consultation Request
Date/Time Consultation Performed: 07/21/25
Requesting Provider: Dr. Dalal
Performing Provider: Maria Del Carmen Helm PA-C for Dr. Hall
Reason for Consultation: volume mgmt
Medical History
-
Chief Complaint: dark stools
History of Present Illness:
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
sided heart failure, pericardial effusion with hemodynamic compromise, and rapid afib. She required pericardiocentesis at that time. She has been relatively stable from cardiac standpoint however then presented to GI 07/20/25 due to melena over the
last month. Her eliquis had been stopped 4 days prior to GI visit. Was heme positive and referred to ER for inpatient EGD. hgb 6.5 on arrival to ER and transfused 2 U PRBCs. EGD was completed 07/21 and noted to have a gastric ulcer with suture and
clot on it, from prior G tube. From GI standpoint, will likely require colonoscopy this admission. Cardiology consulted for assistance with volume management in setting of known right sided heart failure, s/p transfusion, and need for primarily
fluid diet/bowel prep. She received dose of IV lasix 20mg overnight. ProBNP 5760. Patient denies recent shortness of breath. Denies significant weight gain. Has been compliant with p.o. Lasix 40 mg daily as outpatient.
PMH:
Chronic R sided heart failure
Persistent atrial fibrillation
Chronic eliquis therapy
History of pericardial effusion with hemodynamic compromise s/p pericardiocentesis for 800mL of bloody fluid 08/30/22
Congenital heart disease
sinus venosus ASD
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
Eisenmenger physiology (since diagnosis)
Pulmonary hypertension, WHO group 1, secondary to above
chronically on opsumit, started 12/2022 on adempas
history of intolerance to uptravi, revatio/adcirca
Aortic insufficiency
History of head and neck cancer s/p partial glossectomy and lymph node dissection, chemo, radiation 2012
Chronic nasal congestion
Chronic dizziness
Chronic RBBB
Anxiety
Past Medical History
Past Medical History: Other (in HPI)
Social History
Tobacco: Non-Smoker
Alcohol: None
Drug: None
Family History
Family History: Hypertension
Allergies / Home Medications
Allergy/AdvReac Type Severity Reaction Status Date / Time
amoxicillin Allergy Unknown Verified 07/20/25 17:06
codeine (Codeine) Allergy 'makes me Verified 07/20/25 17:06
sick'-NAUSEA
metoclopramide Allergy Unknown Verified 07/20/25 17:06
morphine Allergy PASS OUT Verified 07/20/25 17:06
�Medication �Instructions �Recorded �Confirmed �Type
macitentan 10 mg tablet (Opsumit) 10 mg PO HS Lung/breathing issues 03/16/17 07/20/25 History
lorazepam 0.5 mg tablet 0.5 mg PO DAILYPRN PRN anxiety 08/28/22 07/20/25 History
apixaban 5 mg tablet (Eliquis) 5 mg PO BID Blood Clot 12/25/22 07/20/25 History
Prevention/Tx
digoxin 125 mcg (0.125 mg) tablet 125 mcg PO MOWEFR Arrhythmia 12/25/22 07/20/25 History
furosemide 20 mg tablet 40 mg PO DAILY@1200 Fluid 12/25/22 07/20/25 History
Retention/Swelling
metoprolol succinate 25 mg 12.5 mg PO HS Blood Pressure 12/25/22 07/20/25 History
tablet,extended release 24 hr
riociguat 0.5 mg tablet (Adempas) 0.5 mg PO TID PAH 12/25/22 07/20/25 History
bisacodyl 10 mg rectal suppository 10 mg [place] DAILYPRN PRN constipation 07/20/25 07/20/25 History
(Dulcolax (bisacodyl))
Review of Systems
-
History Source: Patient
All other systems: Negative unless noted
Physical Exam
Vital Signs
Temp Pulse Resp BP Pulse Ox
98.4 F 77 16 106/54 93
07/21/25 12:00 07/21/25 13:00 07/21/25 13:00 07/21/25 13:00 07/21/25 13:00
Lab Results
07/21/25 05:55
07/21/25 05:55
Cuh-Z-Rivsftacird Pept 5760 pg/ml 07/20/25 19:57
Physical Exam
General: No Apparent Distress, Comfortable and Other (on supp O2)
HEENT: Normocephalic, Anicteric and Moist Mucous Membranes
Respiratory: Crackles and Non Labored Respirations
Cardiac: S1/S2, Irregular Rhythm and Murmur
GI: Soft, Non Tender, Non Distended and Normal Bowel Sounds
Musculoskeletal: No Clubbing, No Cyanosis and No Edema
Skin: Warm and Dry
Neuro: AO x 3
Impression / Plan
-
Primary [employer]ricator: Dr. Medina Sykes
Assessment:
Heme positive stool
Acute anemia
Acute GI bleed
Chronic R sided heart failure
Persistent atrial fibrillation
Chronic eliquis therapy
History of pericardial effusion with hemodynamic compromise s/p pericardiocentesis for 800mL of bloody fluid 08/30/22
Congenital heart disease
sinus venosus ASD
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
Eisenmenger physiology (since diagnosis)
Pulmonary hypertension, WHO group 1, secondary to above
chronically on opsumit, started 12/2022 on adempas
history of intolerance to uptravi, revatio/adcirca
Aortic insufficiency
History of head and neck cancer s/p partial glossectomy and lymph node dissection, chemo, radiation 2012
Chronic nasal congestion
Chronic dizziness
Chronic RBBB
Anxiety
ECHO 03/01/25: EF 60 to 65%, flattened septum in systole and diastole consistent with RV pressure and volume overload, stage I diastolic dysfunction, severely dilated RA, mild MR, mild AR, severe TR with PAP 65 mmHg, mild to moderate IL, evidence of
ASD present with [id number] shunt
Plan:
- Patient presented due to approximately 1 month of melena. Found to have heme positive stool as well as acute anemia with hemoglobin of 6.5 on arrival
- Underwent EGD today without obvious source of bleeding per GI. Likely for colonoscopy this admission
- Status post 2 units PRBCs with improvement in hemoglobin to 8.5. Received 20 mg IV Lasix overnight
- Cardiology consulted for assistance with volume management in this cardiac complex patient
- proBNP 5760. Chest x-ray appears relatively stable
- currently requiring 3L NC in PACU, wean supp O2 as able
- will place on IV lasix 40mg daily and follow volume status. Cr stable at 1.0. was on po lasix 40mg daily prior to admission
- most recent echo 03/01/25 as above
- in rate controlled afib with RBBB by EKG. continue OP digoxin, toprol
- eliquis on hold at present. last dose several days prior to admission
Data Reviewed
-
EKG: Tracing Personally Visualized and interpreted
Radiology: Report Reviewed by me
Medical Tests (Nuc Med, Echo etc): Report Reviewed by me
Labs: Labs Reviewed by me
Old Records: Reviewed
--- NOTE | 2025-07-21 14:15 | PTCARENOTE ---
Pt received from the PACU via stretcher. Transport was w/o incident. Pt is AAOx3, HR irreg., Lungs are coarse throughout, resp. are easy at rest presently. Pulse ox is 96% on 2 Liter via nc., Pt denies pain and nausea at this time. VSS, Pt is
afebrile. Pt instructed on plan of care. Pt verbalized understanding of instructions. Call calvillo is within reach.
[2025-07-21 17:59] LABS: Iron 211 ug/dl (37-170)
[2025-07-21 18:09] LABS: Total Iron Binding Capacity 391 ug/dl (265-497)
[2025-07-21 18:47] LABS: Ferritin 9.8 ng/ml (11.1-264.0)
[2025-07-21] MEDS: LASIX 40 MG IV (18:49)
[2025-07-21] MEDS: NON-FORMULARY ITEM PO (18:51)
[2025-07-21 19:18] LABS: Folate 12.1 ng/ml (2.76-20); Vitamin B12 821 pg/ml (239-931)
[2025-07-21] MEDS: NON-FORMULARY ITEM 10 MG PO (21:25)
[2025-07-22 01:36] VITALS: BMI 25.3
[2025-07-22 03:21] VITALS: BP 116/50
[2025-07-22 06:00] VITALS: BMI 24.1
--- NOTE | 2025-07-22 06:06 | W.PN.GI.CBS2 ---
Addendum entered and electronically signed by Lane Almodovar, DO 07/22/25 14:03:
Updated patient's daughter as well this afternoon regarding the below and importance of close follow-up as outpatient.
Original Note:
Today's Communication / Plan
-
No signs of recurrent bleeding and stable H/h. Declining colonoscopy while inpatient. Favor restarting a/c tomorrow given small ulceration found during recent EGD. Rest of care as outlined below. GI will sign-off, please recontact with any questions
or concerns.
Assessment / Plan
-
Assessment-
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
hypertension, CHF with bilateral baseline pedal edema, right bundle branch block, aortic regurgitation, diverticulitis and anxiety who is admitted to the hospital for evaluation of acute blood loss anemia and melanotic stools.
Problem list-
# Acute blood loss anemia
# Melanotic stools
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
# Right bundle branch block
# Pulmonary artery hypertension
# Paroxysmal A-fib on Eliquis, last dose of Eliquis on Friday-07/16/2025.
S/p EGD 07/21/25: 2mm ulcer gastric body at site of what appeared to be a suture with clot adhered to the suture s/p injection with 2 cc epi and clipped, no active bleeding. Suture felt to be from prior G tube and site ulcerated with oozing form
eliquis, otherwise grossly normal. H/h remains stable with Hgb 8.5 -> 9.0 and without any signs of overt bleeding since admission. However, still unclear if her small ulcer fully accounts for her presentation and discussed pursuing a colonoscopy
this admission.
Recommendations:
- Discussed pursuing a colonoscopy while inpatient as her last colonoscopy > 10 years ago and unclear if her small ulcer fully explains her presentation
- Favor pursuing this inpatient especially given her cardiac history and slow-prep over weekend
- However, patient currently declining a colonoscopy at this time and wishes to go home. Does not want to stay over weekend despite my recommendation to pursue this inpatient
- For now as currently declining any further interventions, okay for regular diet as tolerated
- Trend Hgb with serial CBC
- Continue PPI 40 mg BiD for 8 weeks then once daily given her small ulcer at site of suture
- Favor holding a/c an additional 24 hrs given recent epi/clip. Okay to resume eliquis tomorrow if no plans for colonoscopy.
- Will need close outpatient follow-up with Dr. Dalal as outpatient to further discuss pursuing colon. However, this would still need to be performed in the hospital given her cardiac history
- Monitor for signs of recurrent bleeding
- Cardiology following, appreciate recs
- Rest of care as per primary team
Discussed with primary internal medicine team this AM. GI will sign-off, please re-contact with any questions/concerns.
Subjective
Subjective
Date of Service: July 22, 2025
- S/p EGD 07/21/25: 2mm ulcer gastric body at site of what appeared to be a suture with clot adhered to the suture s/p injection with 2 cc epi and clipped, no active bleeding. Suture felt to be from prior G tube and site ulcerated with oozing form
eliquis, otherwise grossly normal
- Cardiology consulted receiving IV lasix for diuresis
- Otherwise, no acute events overnight. H/h remains stable with Hgb 8.5 -> 9.0
Resting comfortably and denies any further dark stools. Discussed results of her recent EGD although still unclear if this fully accounts for her presentation. Does not wish to pursue a colonoscopy while inpatient despite discussing this for awhile
this AM. Otherwise, no other abdominal pain or discomfort. Hoping for solid food today.
Objective
Data Reviewed
Laboratory Data:
Laboratory Results
PT 16.6 Sec (11.4-14.6) H 07/20/25 17:25
INR 1.37 07/20/25 17:25
APTT 25.5 Sec (23.4-35.0) 07/20/25 17:25
Total Bilirubin 1.1 mg/dl (0.2-1.3) 07/20/25 17:25
AST 28 U/L (14-36) 07/20/25 17:25
ALT 16 U/L (0-35) 07/20/25 17:
Alkaline Phosphatase 77 U/L (38-126) 07/20/25 17:25
Vital Signs and I&O:
Vital Signs
Temp Pulse Resp BP Pulse Ox
97.9 F 82 17 116/50 99
07/22/25 03:21 07/22/25 03:21 07/22/25 03:21 07/22/25 03:21 07/22/25 03:21
I&O
07/20/25 07/21/25 07/22/25
06:59 06:59 06:59
Intake Total 500 / 500 150 / 150
Balance 500 / 500 150 / 150
Physical Exam
Physical Exam
HEENT: Anicteric and Moist mucous membranes
Pulmonary: Other (Normal WOB)
GI: Soft, Non Distended and Non Tender
Extremities: Warm
[2025-07-22 07:20] VITALS: BP 102/54
--- NOTE | 2025-07-22 08:52 | W.PN.CARDCBS ---
Addendum entered and electronically signed by Bo Hall MD 07/22/25 11:30:
I saw and examined the patient.
The Switch Crew Supervisor's note was reviewed and I agree with the note.
Comment: 80-year-old woman with past medical history of congenital heart disease, ASD and anomalous pulmonary venous return, who developed pulmonary hypertension, Eisenmenger syndrome and right-sided heart failure as well as persistent atrial
fibrillation on Eliquis who presents with melena and anemia concerning for acute GI bleed. Patient underwent EGD earlier today a bleeding gastric ulcer. Tentatively plan for colonoscopy. Cardiology has been consulted to help with management of
her chronic heart failure.
Volume status is significantly improved today with IV diuresis
Will transition back to home diuretic dosing�Lasix 40 mg p.o. daily
Would resume usual cardiac meds
Restart Eliquis once safe from GI standpoint
Stable cardiac status. Will sign off. Please recall as needed.
Original Note:
Today's Communication / Plan
-
Likely transition to PO lasix 07/23
Weight improved, no longer on O2.
No plans for colonoscopy this admission, resume Eliquis once OK per GI
Agree w/ K repletion per primary service.
Follow up to be arranged.
Impression / Plan
-
Primary Digital Color Press Operator: Dr. Medina Sykes
Assessment:
Heme positive stool
Acute anemia
Acute GI bleed
Acute on chronic R sided heart failure
Persistent atrial fibrillation
Chronic Eliquis therapy
History of pericardial effusion with hemodynamic compromise s/p pericardiocentesis for 800mL of bloody fluid 08/30/22
Congenital heart disease
sinus venosus ASD
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
Eisenmenger physiology (since diagnosis)
Pulmonary hypertension, WHO group 1, secondary to above
chronically on opsumit, started 12/2022 on adempas
history of intolerance to uptravi, revatio/adcirca
Aortic insufficiency
History of head and neck cancer s/p partial glossectomy and lymph node dissection, chemo, radiation 2012
Chronic nasal congestion
Chronic dizziness
Chronic RBBB
Anxiety
ECHO 03/01/25: EF 60 to 65%, flattened septum in systole and diastole consistent with RV pressure and volume overload, stage I diastolic dysfunction, severely dilated RA, mild MR, mild AR, severe TR with PAP 65 mmHg, mild to moderate [place], evidence of
ASD present with [id number]-sazyo shunt
Plan:
-Presented with 1 month of melena. Admitted with acute anemia and suspected GIB with hgb of 6.5 on arrival.
-Underwent EGD 07/21 with 2mm ulcer noted at site of suture with clot adhered to the suture. Injected and clipped.
-There was consideration for colonoscopy this admission, however patient reports this AM there is no longer plan for colonoscopy and if needed she will pursue as OP.
-s/p 2 units PRBCs this admission with hgb up to 9.0 this AM.
-Started on IV lasix and weight down to 119 lbs this AM which is near baseline by report, however still w/ significant LE edema.
-Creat stable at 1.0. No longer on supplemental O2.
-Likely can transition to PO lasix starting 07/23.
-Echo 02/2025 with preserved EF as noted above. No need to repeat at this time.
-Remains in rate controlled Afib on review of tele, continue digoxin, toprol.
-Eliquis remains on hold at this time. Resume once safe per GI.
-Will arrange cardiology follow up.
Progress Note - Digital Color Press Operator
Subjective
Date of Service: July 22, 2025
Feels well this morning. No bleeding. No SOB. Still has LE edema. Anxious for d/c.
Objective
Labs:
Labs
Hgb 8.5 g/dL (12.0-16.0) L D 07/21/25 05:55
Hct 26.7 % (37.0-47.0) L 07/21/25 05:55
Plt Count 178 10^3/uL (130-400) 07/21/25 05:55
PT 16.6 Sec (11.4-14.6) H 07/20/25 17:25
INR 1.37 07/20/25 17:25
APTT 25.5 Sec (23.4-35.0) 07/20/25 17:25
Sodium 136 mmol/L (135-145) 07/21/25 05:55
Potassium 3.8 mmol/L (3.5-5.1) 07/21/25 05:55
BUN 32 mg/dl (7-17) H 07/21/25 05:55
Creatinine 1.0 mg/dL (0.6-1.0) 07/21/25 05:55
Glucose 99 mg/dl (70-99) 07/21/25 05:55
Vital Signs and I&O:
Vital Signs
Temp Pulse Resp BP Pulse Ox
97.5 F 96 16 102/54 97
07/22/25 07:20 07/22/25 07:20 07/22/25 07:20 07/22/25 07:20 07/22/25 07:20
Vital Signs
Temp Pulse Resp BP Pulse Ox
97.5 F 96 16 102/54 97
07/22/25 07:20 07/22/25 07:20 07/22/25 07:20 07/22/25 07:20 07/22/25 07:20
Intake & Output
07/20/25 07/21/25 07/22/25 07/23/25
06:59 06:59 06:59 06:59
Intake Total 500 / 500 150 / 150
Balance 500 / 500 150 / 150
Physical Exam
Physical Exam
GEN: No distress, awake, alert, oriented x3
HEENT: supple, anicteric, mmm
LUNGS: CTA b/l, no wheezes/rales
CV: irreg, S1/S2, 1/6 syst murmur
EXT: No clubbing or cyanosis. +2 edema b/l LE
NEURO: Gross non-focal
SKIN: Warm, dry, no rash
[2025-07-22 08:54] LABS: Hematocrit 28.9 % (37.0-47.0); Hemoglobin 9.0 g/dL (12.0-16.0); Mean Corp Hgb Conc. 31.1 g/dL (33.0-37.0); Mean Corpuscular Volume 92.9 fL (81.0-99.0); Nucleated Red Blood Cells % 0.7 %; Platelet Count 188 10^3/uL (130-400); Red Cell Dist. Width 16.6 % (11.5-14.5)
[2025-07-22] MEDS: NON-FORMULARY ITEM 0.5 MG PO (08:56)
[2025-07-22] MEDS: NSS (PRESERVATIVE FREE) 10 ML IV (09:01)
[2025-07-22] MEDS: PROTONIX IV 40 MG IV (09:01)
[2025-07-22] MEDS: LASIX 40 MG IV (09:06)
[2025-07-22] MEDS: LANOXIN 125 MCG PO (09:06)
[2025-07-22 09:08] LABS: Blood Urea Nitrogen 23 mg/dl (7-17); Calcium 8.3 mg/dl (8.4-10.2); Carbon Dioxide 27 mmol/L (22-30); Chloride 101 mmol/L (98-107); Estimated Creatinine Clearance 31 ml/min; Glucose 83 mg/dl (70-99); Magnesium 1.9 mg/dl (1.6-2.3); Potassium 3.3 mmol/L (3.5-5.1); Sodium 135 mmol/L (135-145); eGFR 57.31
--- NOTE | 2025-07-22 10:03 | PN.CDI ---
CDI
- -
CDI:
Physician Documentation Request
Admit Date: 07/20/25 22:09
Dear Doctor,
Patient admitted for GI bleed.
07/21 GI PN: 'Afib on eliquis presents with melena x 2 weeks...Hold Eliquis- last dose 07/16...Status post 2 units of blood transfusion, hemoglobin at 8.5, stable.'
07/22 Hospitalist PN: 'Acute GI bleed'
Please clarify the relationship between these conditions:
Yes, GI bleed is related to/associated with/exacerbated by Eliquis.
No, GI bleed is not related to/associated with/exacerbation by Eliquis but it is due to ___. (Please specify)
Unable to determine
Use of terms such as suspected, likely, concern for, or probable (associated with a specific diagnosis that is being evaluated, monitored, or treated as if it exists) are acceptable and can be coded in the inpatient setting, when documented at the
time of discharge.
Thank you,
Anabell Wilkins RN, BSN
CDI Specialist
Available via [place] text
Please use your independent medical judgment in providing your response.
[2025-07-22] MEDS: KCL ELIXIR 40 MEQ PO (10:52)
--- NOTE | 2025-07-22 10:52 | CM ---
Addendum entered by Iam Bolden 07/22/25 12:32:
Patient has discharge order in. Updated Kate Luis, asking to speak w/ GI doctor as she is wanting a CT scan for patient prior to discharge. Updated nurse to give daughter a call as Kate Luis is having issues connecting to nurse station via phone.
CM discussed home health recommendation, Kate Luis declined at this time
Plan: Home, no needs
Original Note:
Spoke w/ patient's daughter, Kate Luis, initial assessment completed. Patient is a 80 year old female from home with 3 weeks hx of dark stools.
Patient resides w/ daughter and son in a 2STH, 1 small step into the house. Patient is independent w/ ambulation, no device required. Independent w/ ADLs and personal care. No DME. HC hx about 2 years ago. No SNF hx.
Address, point of contact and insurance verified
PCP: Carlos Eduardo Mcclellan
Pharmacy: [facility]
Patient no longer on O2. Therapy following, no needs vs home PT
Plan: Home, will offer home PT if continues to be recommended
--- NOTE | 2025-07-22 11:01 | W.PN.HOSP.TC ---
Addendum entered and electronically signed by Eliceo Malone MD 07/22/25 15:49:
Yes, GI bleed is related to/associated with/exacerbated by Eliquis.
Original Note:
Today's Communication/Plan
-
Discharge planning today
Assessment / Plan
Assessment / Plan
Physical exam:
General: No acute distress
HEENT: Normocephalic, Atraumatic and Moist Mucous Membranes
Respiratory: Clear to Auscultation; Negative Wheezes, Rales or Rhonchi
Cardiac: Irregular rate and rhythm, systolic murmur, and S1/S2
GI: Soft, Nontender and Nondistended
Musculoskeletal: No Clubbing, No Cyanosis and some bilateral lower extremity edema
Neuro: Awake, Alert and Oriented, no neurological deficit
Psych: Calm
A/P:
Acute blood loss anemia:
Status post blood transfusion
Hemoglobin 6.5 upon admission. Today hemoglobin 9
Continue to monitor hemoglobin outpatient
Patient very eager to go home today
GI and cardiology cleared her for discharge
Acute GI bleed:
Continue IV PPI
GI consult appreciated
EGD showed 2 mm ulcer gastric and a suture with clot adhered to the suture status post injection with epi and clipped.
GI evaluated the patient again today and discussed possible colonoscopy but patient declined.
Discussed with GI when to restart anticoagulation in the recommended in 24 hrs.
GI cleared her for discharge
Acute hypoxic respiratory insufficiency:
Oxygen and diuretics as needed
Acute on chronic HFpEF:
Diuretics IV and will switch to oral
Paroxysmal atrial fibrillation:
Continue digoxin 125 mcg p.o. Friday and Friday, and metoprolol succinate 12.5 mg nightly
Holding anticoagulant
Pulmonary hypertension:
On Opsumit as outpatient-continue while inpatient
History of head and neck cancer:
Status post partial glossectomy, lymph node dissection, chemoradiation back in 2012
Anxiety:
Continue benzodiazepines as needed
History of congenital heart disease:
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
Sinus venosus ASD
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
History of pericardial effusion in the past status post pericardiocentesis back in 2022.
DVT prophylaxis:
SCDs
CODE STATUS:
Full code
Total time spent on today's encounter was 35 minutes which included time spent in counseling the patient/family regarding diagnosis and treatment plan as listed above, goals of care, and symptom management. Case was discussed with nursing staff,
specialists, and care coordinators/case management. All labs and imaging personally reviewed by me. Remainder the time spent in detailed review of previous records, lab data, imaging, and other medical provider documentation.
Anticipated Discharge: Today
Subjective/Interval History
-
Date of Service: July 22, 2025
No new complaints. Wants to go home today
Objective Data
-
Labs:
Laboratory Results
07/22/25
07:57
WBC 6.1
Hgb 9.0 L
Hct 28.9 L
Plt Count 188
Sodium 135
Potassium 3.3 L
Chloride 101
Carbon Dioxide 27
BUN 23 H
Creatinine 1.0
Glucose 83
Calcium 8.3 L
Vital Signs:
Vital Signs
Temp Pulse Resp BP Pulse Ox
97.5 F 91 16 102/56 97
07/22/25 07:20 07/22/25 09:06 07/22/25 07:20 07/22/25 09:06 07/22/25 07:20
I&O
07/21/25 07/22/25 07/23/25
06:59 06:59 06:59
Intake Total 500 / 500 150 / 150
Balance 500 / 500 150 / 150
[2025-07-22 11:20] VITALS: BP 102/50
[2025-07-22 11:48] LABS: Hepatitis C Antibody Negative (Negative)
--- NOTE | 2025-07-22 12:08 | W.DCSUMMARY ---
Discharge Summary
Discharge Data
Date of Admission: 07/20/25
Date of Discharge: 07/22/25
Total time spent discharging patient (in min): 41
-
Pending Results: No
Hospital Course
Patient is 80 years old female with history of congenital heart disease including ASD with Eisenmenger physiology, A-fib, pulmonary hypertension, came into the hospital with melena and acute symptomatic anemia consistent with acute GI bleed.
Patient was placed on PPI. Patient had blood transfusions. GI was consulted. Patient underwent upper endoscopy that revealed superficial gastric ulcer and suture that had clot on it found in the gastric body about 2 mm in size status post
injection of epinephrine and one hemostatic clip. Patient tolerated diet after procedure without any problems. Her hemoglobin also remained stable. GI discussed with patient the need for colonoscopy for thorough evaluation but patient declined
but will consider as outpatient. Discussed with GI and they recommend to restart anticoagulation over the next 24 hours after discharge. Patient close also complicated with volume overload for which cardiology was consulted and she was diuresed
intravenously and back to her oral diuretics. Cardiology cleared her for discharge as well today. She is hemodynamically stable and she will be discharged in relatively stable condition today.
Discharge duration: 41 minutes
Discharge Plan
-
Patient Disposition: Home with Home Care
Discharge Diagnosis/Procedures: Acute blood loss anemia. Acute gastrointestinal bleed. Acute on chronic diastolic congestive heart failure. Acute hypoxic respiratory insufficiency. History of congenital heart disease.
Diet: Low Cholesterol, Low Sodium and Restrict fluids to 64 oz
Activity: As tolerated
Blood Work: Please PCP to order CBC, BMP within 1 week
Specialty Instructions: Weigh Daily- Call MD for wt gain/loss 3 lbs overnight/5 lbs in 1 week
Referrals:
Daniel Dalal MD [Active, Gastroenterology] - in four to six weeks
Referral Note: Please f/u with Dr. Dalal in 4-6 weeks as outpatient
Carlos Eduardo Mcclellan MD [Family Provider, Family Practice] - in less than 1 week
Alison Garcia CRNP [Specified Professional Personl, Cardiology] - 07/29/25 7:40 am
Referral Note: You have a follow up visit with Dr. Haney's TANDEM MILL ROLLER, Alison, at the [place] office. Please call with questions.
Prescriptions:
New
pantoprazole [Protonix] 40 mg tablet,delayed release (DR/EC)
40 mg PO BID 30 Days Qty: 60 0RF
Continued
Opsumit 10 MG tablet
10 mg PO HS
lorazepam 0.5 mg tablet
0.5 mg PO DAILYPRN PRN (Reason: anxiety)
digoxin 125 mcg (0.125 mg) Tablet
125 mcg PO MOWEFR
Adempas 0.5 mg Tablet
0.5 mg PO TID
furosemide 20 mg tablet
40 mg PO DAILY@1200
metoprolol succinate 25 mg tablet extended release 24 hr
12.5 mg PO HS
bisacodyl [Dulcolax (bisacodyl)] 10 mg Suppository
10 mg CA DAILYPRN PRN (Reason: constipation)
Held
Eliquis 5 mg Tablet
5 mg PO BID
Hold Instructions: Resume on 07/23/25.
Discharge Orders:
Discharge Patient (As Directed); Ordered 07/22/25
Ordered By: Eliceo Malone
Discharge Date and Time
Discharge Date/Time: 07/22/25 14:45
Print Language: LAO
== END 2025-07-22 14:45 | disposition home or self-care (01) | DRG 377 ==
LOC: 2 SOUTH 22:09
PROVIDERS: Clinical Nurse Specialist Family Health; Emergency Medicine; Registered Nurse; ADMITTING PHYSICIAN Internal Medicine; ATTENDING PHYSICIAN Hospitalist; CONSULT PHYSICIAN Internal Medicine Cardiovascular Disease; CONSULT PHYSICIAN Specialist; EMERGENCY PHYSICIAN Emergency Medicine; FAMILY PHYSICIAN Family Medicine
PROC: 30233N1 Transfusion of Nonautologous Red Blood Cells into Peripheral Vein, Percutaneous Approach (ICD-10-PCS; 2025-07-20)
PROC: 3E0G8GC Introduction of Other Therapeutic Substance into Upper GI, Via Natural or Artificial Opening Endoscopic (ICD-10-PCS; 2025-07-21)
DX: K25.4 Chronic or unspecified gastric ulcer with hemorrhage (principal); I50.33 Acute on chronic diastolic (congestive) heart failure; G82.20 Paraplegia, unspecified; I48.19 Other persistent atrial fibrillation; Q21.1 Atrial septal defect; I31.39 Other pericardial effusion (noninflammatory); D62 Acute posthemorrhagic anemia; D68.32 Hemorrhagic disorder due to extrinsic circulating anticoagulants; F41.9 Anxiety disorder, unspecified; I27.21 Secondary pulmonary arterial hypertension; R47.89 Other speech disturbances; I35.1 Nonrheumatic aortic (valve) insufficiency; I45.10 Unspecified right bundle-branch block; I25.10 Atherosclerotic heart disease of native coronary artery without angina pectoris; R06.89 Other abnormalities of breathing; I11.0 Hypertensive heart disease with heart failure; R09.02 Hypoxemia; N28.9 Disorder of kidney and ureter, unspecified; M47.819 Spondylosis without myelopathy or radiculopathy, site unspecified; I95.9 Hypotension, unspecified; Z87.19 Personal history of other diseases of the digestive system; Z88.5 Allergy status to narcotic agent; Z88.0 Allergy status to penicillin; Z88.8 Allergy status to other drugs, medicaments and biological substances; Z85.810 Personal history of malignant neoplasm of tongue; Z79.01 Long term (current) use of anticoagulants; Z87.891 Personal history of nicotine dependence; Z79.899 Other long term (current) drug therapy; Z92.3 Personal history of irradiation; Z85.71 Personal history of Hodgkin lymphoma; Z92.21 Personal history of antineoplastic chemotherapy; Z85.89 Personal history of malignant neoplasm of other organs and systems
CPT/HCPCS: 71045; 80048; 80053; 82607; 82728; 82746; 83540; 83550; 83735; 83880; 85025; 85610; 85730; 86803; 86850; 86900; 86901; 86920; 93005; P9016